=== PATIENT | male | born 1975 | race Caucasian/White ===

== ENCOUNTER 2020-10-01 13:18 | Emergency (ER) | payer OTHER ==
[~2020-10-01 13:18] MED LIST: ASPIRIN EC81 MG PO; NITROQUIK SL0.4 MG SL
[2020-10-01 14:32] LABS: BASOPHIL 0.6 % (0-2); EOSINOPHIL 1.2 % (0-5); HGB 16.1 g/dl (13.2-18.0); LYMPHOCYTE 21.8 % (15-48); MCH 31.9 pg (25.0-31.0); MCHC 36.6 g/dL (32.0-36.0); MCV 87.3 fL (78.0-100.0); MONOCYTE 6.9 % (0-12); MPV 10.5 fL (6.0-9.5); NRBC 0; PLT 194 K/uL (150-400); RBC 5.04 M/uL (4.70-6.00); RDW 12.3 % (11.5-14.0); WBC 8.1 K/uL (4.0-10.5)
[2020-10-01 14:36] LABS: PROTHROMBIN TIME 12.5 SECONDS (11.4-13.6); PTT 27.5 SECONDS (22.2-34.7)
[2020-10-01 14:39] LABS: ALBUMIN 3.8 g/dL (3.4-5.0); BILIRUBIN - TOTAL 1.4 mg/dL (0.2-1.0); BUN/CREAT RATIO (CALC) 16.1 RATIO; CREATININE 0.87 mg/dL (0.67-1.17); GLOBULIN (CALCULATION) 2.8 g/dL; POTASSIUM 4.1 mmol/L (3.5-5.1); TOTAL PROTEIN 6.6 g/dL (6.4-8.2)
== END 2020-10-01 16:35 | disposition left against medical advice (07) ==
LOC: FER 13:18
PROVIDERS: Emergency Medicine
DX: I50.9 Heart failure, unspecified (principal); I25.10 Atherosclerotic heart disease of native coronary artery without angina pectoris; J98.11 Atelectasis; E11.9 Type 2 diabetes mellitus without complications; Z95.5 Presence of coronary angioplasty implant and graft; Z53.8 Procedure and treatment not carried out for other reasons
CPT/HCPCS: 36415; 71045; 80053; 83880; 84484; 85025; 85610; 85730; 93005

== ENCOUNTER 2021-03-26 20:59 | Emergency (ER) | payer OTHER ==
[2021-03-26 21:28] LABS: BASOPHIL 0.7 % (0-2); EOSINOPHIL 2.2 % (0-5); HGB 16.9 g/dl (13.2-18.0); MCH 30.9 pg (25.0-31.0); MCHC 36.7 g/dL (32.0-36.0); MCV 84.1 fL (78.0-100.0); MONOCYTE 9.8 % (0-12); NEUTROPHIL 64.8 % (41-80); NRBC 0; PLT 200 K/uL (150-400); RBC 5.47 M/uL (4.70-6.00); WBC 5.9 K/uL (4.0-10.5)
[2021-03-26 21:34] LABS: INR 0.93 (0.9-1.2); PROTHROMBIN TIME 11.9 SECONDS (11.8-13.4); PTT 24.1 SECONDS (24.4-34.7)
[2021-03-26 22:13] LABS: PRO-BNP 341 pg/mL (<125)
[2021-03-26 22:25] LABS: ALBUMIN 4.5 g/dL (3.4-5.0); ALKALINE PHOSHATASE 111 U/L (46-116); ALT 44 U/L (16-63); AST 19 U/L (15-37); BILIRUBIN - TOTAL 1.4 mg/dL (0.2-1.0); BUN 20 mg/dL (7-18); BUN/CREAT RATIO (CALC) 17.4 RATIO; CHLORIDE 95 mmol/L (98-107); CO2 (BICARBONATE) 27 mmol/L (21-32); CREATININE 1.15 mg/dL (0.67-1.17); GLOBULIN (CALCULATION) 2.9 g/dL; GLUCOSE 410 mg/dL (74-106); POTASSIUM 3.6 mmol/L (3.5-5.1); TOTAL PROTEIN 7.4 g/dL (6.4-8.2)
[2021-03-26 22:32] LABS: C-REACTIVE PROTEIN < 0.20 mg/dL (<=0.90)
[2021-03-26 23:08] LABS: BILIRUBIN NEGATIVE (NEGATIVE); BLOOD NEGATIVE Ery/uL (NEGATIVE); CLARITY CLEAR (CLEAR); COLOR YELLOW (YELLOW); GLUCOSE (U) 3+ mg/dL (NORMAL); LEUKOCYTES NEGATIVE Leu/uL (NEGATIVE); NITRITE NEGATIVE (NEGATIVE); PROTEIN NEGATIVE (NEGATIVE); UROBILINOGEN 0.2 mg/dL (0.2-1.0)
[2021-03-26 23:14] LABS: AMPHETAMINES POSITIVE (NEGATIVE); BARBITURATES NEGATIVE (NEGATIVE); ECSTASY (MDMA) NEGATIVE (NEGATIVE); MARIJUANA (THC) POSITIVE (NEGATIVE); METHADONE NEGATIVE (NEGATIVE); OPIATES NEGATIVE (NEGATIVE); OXYCODONE NEGATIVE (NEGATIVE)
== END 2021-03-27 02:50 | disposition home or self-care (01) ==
LOC: FER 20:59
PROVIDERS: Emergency Medicine Emergency Medical Services
DX: R07.89 Other chest pain (principal); R00.2 Palpitations; E11.65 Type 2 diabetes mellitus with hyperglycemia; I11.0 Hypertensive heart disease with heart failure; I50.9 Heart failure, unspecified; F17.200 Nicotine dependence, unspecified, uncomplicated
CPT/HCPCS: 36415; 71045; 80053; 80305; 81003; 83880; 84439; 84443; 84484; 85025; 85610; 85730; 86140; 93005; G0480; J7120

== ENCOUNTER 2021-09-07 21:39 | Emergency (ER) | payer OTHER ==
[2021-09-07 22:07] LABS: BASOPHIL 0.7 % (0-2); EOSINOPHIL 2.3 % (0-5); HCT 42.4 % (42.0-52.0); HGB 15.8 g/dl (13.2-18.0); LYMPHOCYTE 35.3 % (15-48); MCH 30.7 pg (25.0-31.0); MCHC 37.3 g/dL (32.0-36.0); MCV 82.5 fL (78.0-100.0); MONOCYTE 11.9 % (0-12); MPV 10.1 fL (6.0-9.5); NRBC 0; PLT 213 K/uL (150-400); RBC 5.14 M/uL (4.70-6.00); RDW 12.3 % (11.5-14.0); WBC 7.1 K/uL (4.0-10.5)
[2021-09-07 22:21] LABS: BUN/CREAT RATIO (CALC) 20.7 RATIO; CREATININE 0.92 mg/dL (0.67-1.17); POTASSIUM 2.9 mmol/L (3.5-5.1)
[2021-09-07 23:10] LABS: AMPHETAMINES NEGATIVE (NEGATIVE); BARBITURATES NEGATIVE (NEGATIVE); ECSTASY (MDMA) NEGATIVE (NEGATIVE); MARIJUANA (THC) NEGATIVE (NEGATIVE); METHADONE NEGATIVE (NEGATIVE); OPIATES NEGATIVE (NEGATIVE); OXYCODONE NEGATIVE (NEGATIVE)
== END 2021-09-08 00:02 | disposition home or self-care (01) ==
LOC: FER 21:39
PROVIDERS: Internal Medicine
DX: R06.02 Shortness of breath (principal); R23.2 Flushing; T46.5X5A Adverse effect of other antihypertensive drugs, initial encounter; F41.9 Anxiety disorder, unspecified; E87.6 Hypokalemia; I50.9 Heart failure, unspecified; E11.9 Type 2 diabetes mellitus without complications; F17.290 Nicotine dependence, other tobacco product, uncomplicated; Z91.048 Other nonmedicinal substance allergy status; Z88.8 Allergy status to other drugs, medicaments and biological substances
CPT/HCPCS: 36415; 80048; 80305; 85025; 93005; J1200; J2405